=== PATIENT | male | born 1995 | race Caucasian/White ===

== ENCOUNTER 2022-02-05 08:08 | Emergency (ER) | payer BC, SELFPAY ==
[2022-02-05 08:28] VITALS: BP 90/61; PULSE 99; RESP 16; TEMP 37.4; O2SAT 97
--- NOTE | 2022-02-05 08:30 | ED.GENADULT ---
HPI - General Adult General Chief complaint: Upper Respiratory Infection Stated complaint: congestion, sore throat, fever, fatigue History of Present Illness HPI narrative: Patient is a 26-year-old male who presents to the [facility] via POV accompanied by significant other for evaluation of cold symptoms that have been present for 2 days. Additionally, he reports fever, sore throat, fatigue, runny nose, cough, and myalgias. Maximum temperature is reported to be 101.0. No relief with Tylenol, NyQuil, or DayQuil. Denies known exposure to sick contacts. Patient reports test himself for COVID at home which was negative. Related Data Allergies Allergy/AdvReac Type Severity Reaction Status Date / Time amoxicillin Allergy Hives Verified 02/05/22 08:16 Pertussis Vaccines Allergy Seizure Verified 02/05/22 08:16 Review of Systems Review of Systems: Denies chills, sweats, change in appetite, poor p.o. intake, headaches, sinus problems, ear problems, drooling, difficulty swallowing, voice changes, wheezing, shortness of breath, cyanosis, chest pain, heart palpitations, abdominal pain, nausea, vomiting, diarrhea PMFSH Comments I have reviewed and agree with the patient's past medical, surgical, social, and family hx as documented by the RN. There is no relevant family history pertinent to the presenting complaint. Exam Narrative: GENERAL: Well-appearing, well-nourished, and in no acute distress. HEAD: Normocephalic, atraumatic. No sinus tenderness or facial swelling appreciated. EYES: PERRLA and EOMI. No evidence of erythema, swelling, or drainage. ENT: Bilateral external ears and ear canals normal. Bilateral TMs are normal.No TM perforation. Nares clear, no rhinorrhea or epistaxis. Bilateral turbinates without erythema/ swelling. Mucous membranes moist and pink. Uvula is midline without erythema and swelling. posterior pharynx is mildly erythematous otherwise normal. Breath odor and voice normal. NECK: Supple. No Lymphadenopathy or nuchal rigidity appreciated. CHEST: Bilateral lung soliz are clear to auscultation. No respiratory distress. No evidence of cough or pleuritic cp upon examination. HEART: Regular rate and rhythm. No murmur, gallop, or rub heard. EXTREMITIES: Normal range of motion. No edema. SKIN: Warm, dry, no rash. NEURO: No focal deficits. Alert and oriented x3. Course Course Level of Care: Express Care Visit Vital Signs Vital signs: Vital Signs Temperature 99.4 F 02/05/22 08:28 Pulse Rate 99 02/05/22 08:28 Respiratory Rate 16 02/05/22 08:28 Blood Pressure 90/61 L 02/05/22 08:28 Pulse Oximetry 97 02/05/22 08:28 Temperature 99.4 F 02/05/22 08:28 Pulse Rate 99 02/05/22 08:28 Respiratory Rate 16 02/05/22 08:28 Blood Pressure 90/61 L 02/05/22 08:28 Pulse Oximetry 97 02/05/22 08:28 Medical Decision Making Differential Diagnosis Differential Diagnosis: allergic rhinitis, ABRS, acute viral sinusitis, strep pharyngitis, nasopharyngitis, bronchitis, pneumonia, AOM, otitis externa, viral URI, influenza, covid-19 Vital Signs Vital Signs: Vital Signs Temperature 99.4 F 02/05/22 08:28 Pulse Rate 99 02/05/22 08:28 Respiratory Rate 16 02/05/22 08:28 Blood Pressure 90/61 L 02/05/22 08:28 Pulse Oximetry 97 02/05/22 08:28 Temperature 99.4 F 02/05/22 08:28 Pulse Rate 99 02/05/22 08:28 Respiratory Rate 16 02/05/22 08:28 Blood Pressure 90/61 L 02/05/22 08:28 Pulse Oximetry 97 02/05/22 08:28 reviewed Lab Data Labs: rapid strep negative; influenza a/B negative Critical Care Time Critical Care Time Critical Care Time: No Discharge Plan Discharge Clinical Impression: Upper respiratory infection Qualifiers: URI type: unspecified viral URI Qualified Code(s): J06.9 - Acute upper respiratory infection, unspecified Patient Disposition: Home, Self-Care Condition: Stable Instructions: Viral Syndrome (ED)
== END 2022-02-05 08:58 | disposition home or self-care (01) ==
PROVIDERS: Emergency Provider Nurse Practitioner Family
DX: J06.9 Acute upper respiratory infection, unspecified (principal)
CPT/HCPCS: 87081; 87804; 87880; 99213; G0463

== ENCOUNTER 2023-11-25 13:41 | Emergency (ER) | payer OTHER, SELFPAY ==
--- NOTE | ~2023-11-25 | XR_ITS ---
EXAMINATION: XR ankle LT min 3V DATE: 11/25/2023 15:02 INDICATION: Lateral left ankle swelling TECHNIQUE: Anteroposterior, oblique, mortise, and lateral views of the left ankle were obtained. COMPARISON: None. FINDINGS: Bone alignment is normal. No fracture. Joint spaces at the left ankle and visualized foot are normal. No ankle joint effusion. There is some heterotopic ossification along the lateral margin of the dist al tibial metaphysis which suggests sequela of chronic high ankle sprain. There is prominent soft tis geo swelling overlying the lateral malleolus. No underlying cortical erosion or periosteal reaction. IMPRESSION: 1. Prominent nonspecific soft tissue swelling overlying the lateral malleolus. No acute osseous abnor mality. Reviewed, dictated and finalized at location A. IMPRESSION: 1. Prominent nonspecific soft tissue swelling overlying the lateral malleolus. No acute osseous abnormality.
[2023-11-25 14:09] VITALS: BP 122/80; PULSE 65; RESP 16; TEMP 36.5; O2SAT 100
--- NOTE | 2023-11-25 14:48 | ED.EXTPRO ---
HPI - Extremity Problem General Chief complaint: Extremity Problem,Nontraumatic Stated complaint: Swollen Left Ankle Time Seen by Provider: 11/25/23 14:48 Source: patient Mode of arrival: ambulatory Limitations: no limitations History of Present Illness HPI Narrative: 28-year-old male presented for complaint of left lateral ankle swelling. First noticed today. He denies any pain with movement. Denies injury or overuse. Ambulating without any difficulty. No redness or warmth to the site. Related Data Allergies Allergy/AdvReac Type Severity Reaction Status Date / Time amoxicillin Allergy Hives Verified 11/25/23 14:35 Pertussis Vaccines Allergy Seizure Verified 11/25/23 14:35 tree nut Allergy Unknown Verified 11/25/23 14:35 Review of Systems Review of Systems: CONSTITUTIONAL: Denies body aches, fever, chills CARDIOVASCULAR: Denies chest pain, palpitations, or edema. RESPIRATORY: Denies cough or dyspnea. SKIN: Denies rash, itching, or wounds. MUSCULOSKELETAL: Reports left ankle swelling Denies back pain, joint pain, or myalgia. NEUROLOGIC: Denies headache, numbness, tingling, or weakness. All systems reviewed & are unremarkable except as noted in HPI and below PMFSH Comments At time of signature, I have reviewed and agree with nursing past medical, surgical, social and family history unless otherwise noted. Please see nursing chart for further information. There is no relevant family history pertinent to the presenting complaint Exam Narrative: GENERAL: Well-appearing CHEST: Speaks in full sentences. No respiratory distress. HEART: Regular rate and rhythm. Normal and equal peripheral pulses. EXTREMITIES: Left lateral malleolus swelling c/w bursitis, tender with palpation to anterior and posterior aspects of malleolus. Left foot and ankle have normal strength and sensation, normal range of motion with flexion/extension/rotation of ankle, without pain. No erythema, warmth or ecchymosis, No open wounds, or obvious deformity; alignment normal, pulse palpable and equal bilaterally, skin warm, dry, pink. Capillary refill less than 3 seconds. SKIN: Warm, dry NEURO: Alert and oriented x3. PSYCH: Normal mood and affect Course Course Emergency Course: Patient is aware of diagnosis, understands and agrees to treatment plan. Anticipatory guidance given. Patient agrees to follow-up as directed and is aware of reasons to seek care at the emergency department. Portions of this record may have been created with voice recognition software Level of Care: Express Care Visit Vital Signs Vital signs: Vital Signs Temperature 97.7 F 11/25/23 14:09 Pulse Rate 65 11/25/23 14:09 Respiratory Rate 16 11/25/23 14:09 Blood Pressure 122/80 11/25/23 14:09 Pulse Oximetry 100 11/25/23 14:09 Temperature 97.7 F 11/25/23 14:09 Pulse Rate 65 11/25/23 14:09 Respiratory Rate 16 11/25/23 14:09 Blood Pressure 122/80 11/25/23 14:09 Pulse Oximetry 100 11/25/23 14:09 Reviewed MDM - Extremity (Nontraumatic) MDM Narrative Medical decision making narrative: Discussed physical exam findings and x-ray. Juwan wrap applied. Endorses hx high ankle sprain in college. Advised supportive measures and signs/symptoms to go to the ER. Pt is appropriate for outpt treatment and f/u. Differential Diagnosis Differential diagnosis: Likely other (Ankle sprain, strain, fracture, bursitis, contusion, tendonitis) Imaging Data Radiologist's impression: Patient: César Meyer : 1995 MR#: [id number] Age: 28 Acct:[id number] Loc: [facility] ADM Date: 11/25/23Attending Dr: Ordering Physician: Ashely Guzman APRN Date of Service: 11/25/23 Procedure(s): XR ankle LT min 3V Accession Number(s): [id number] cc: Ashely Guzman APRN; BLOG WRITER PHYSICIAN~ EXAMINATION: XR ankle LT min 3V DATE: 11/25/2023 15:02 INDICATION: Lateral left ankle swelling TECHNIQUE: Anteroposterior, oblique
== END 2023-11-25 15:35 | disposition home or self-care (01) ==
PROVIDERS: Emergency Provider Nurse Practitioner Family
DX: R22.42 Localized swelling, mass and lump, left lower limb (principal)
CPT/HCPCS: 73610; 99213; G0463